=== PATIENT | female | born 1965 | race Caucasian/White ===

== ENCOUNTER 2024-03-15 08:38 | Outpatient (CLI) | payer MEDICARE ==
[2024-03-15] MEDS ORDERED: Barium Sulfate 96% 176 GM BOT (xray ONLY) ONE (08:53)
[2024-03-15] MEDS ORDERED: E-Z-HD 98% W/W 340GM BOT (x-ray ONLY) ONE ×2 (08:53→08:54)
== END 2024-03-15 08:39 | disposition home or self-care (01) ==
LOC: RAD 08:38
PROVIDERS: ATTEND Specialist
DX: K21.9 Gastro-esophageal reflux disease without esophagitis (principal); K44.9 Diaphragmatic hernia without obstruction or gangrene
CPT/HCPCS: 74246